=== PATIENT | male | born 1975 | race Caucasian/White ===

== ENCOUNTER 2016-09-06 23:07 | Emergency (ER) | payer OTHER ==
[2016-09-06] MEDS ORDERED: IPRATROPIUM/ALBUTEROL 3 ML NEB INH ONE (23:20)
[2016-09-06] MEDS ORDERED: IPRATROPIUM/ALBUTEROL 3 ML NEB INH STA (23:50)
--- NOTE | 2016-09-06 23:58 | ED Physician Documentation ---
PD HPI URI - Stated complaint Stated Complaint: COUGH,BLOOD ON PHLEGM - Chief complaint Chief Complaint: General - History obtained from History obtained from: Patient, Family - History of Present Illness Timing - onset: How many weeks ago (2) Timing details: Gradual onset, Still present Associated symptoms: Productive cough. No: Fever, Chills Worsened by: Activity Similar symptoms before: No diagnosis Recently seen: Not recently seen - Additional information Additional information: Patient is a 41 year old male with no significant past medical history who is presenting to the emergency department for cough. According to patient and family for over the last week patient has had a persist productive cough. patient has tried multiple medications with little relief. Patient states that tonight he came in because there was some blood on his phlegm. Review of Systems Constitutional: denies: Fever, Chills Eyes: denies: Loss of vision, Decreased vision Ears: denies: Ear pain, Drainage/discharge Nose: reports: Congestion. denies: Rhinorrhea / runny nose, Epistaxis, Sinus pressure / pain Throat: denies: Dental pain / toothache, Oral lesions / sores, Sore throat Cardiac: denies: Chest pain / pressure, Palpitations, Calf pain Respiratory: reports: Cough. denies: Wheezing GI: denies: Abdominal Pain, Nausea, Vomiting : denies: Dysuria, Frequency, Hesitancy Skin: denies: Rash, Lesions Musculoskeletal: denies: Neck pain, Back pain, Extremity pain, Extremity swelling Neurologic: denies: Generalized weakness, Focal weakness, Numbness Immunocompromised: denies: Immunocompromised PD PAST MEDICAL HISTORY - Past Medical History Past Medical History: Yes Cardiovascular: None Respiratory: Sleep apnea Neuro: None Endocrine/Autoimmune: None GI: None : None HEENT: None Psych: None Musculoskeletal: None Derm: None - Past Surgical History Past Surgical History: No - Present Medications Home Medications: Ambulatory Orders Medication Instructions Recorded Confirmed Benzonatate [Tessalon] 100 mg PO TID #15 capsule 09/07/16 Prednisone 40 mg PO DAILY 5 Days 09/07/16 guaiFENesin/CODEINE [Robitussin AC] 10 ml PO Q6H PRN #120 ml 09/07/16 - Allergies Allergies/Adverse Reactions: Allergies Allergy/AdvReac Type Severity Reaction Status Date / Time No Known Drug Allergies Allergy Verified 09/06/16 23:15 - Social History Does the pt smoke?: No Smoking Status: Never smoker Does the pt drink ETOH?: No Does the pt have substance abuse?: No - Immunizations Immunizations are current?: Yes - POLST Patient has POLST: No PD ED PE NORMAL - Vitals Vital signs reviewed: Yes - General General: Alert and oriented X 3, No acute distress, Well developed/nourished - HEENT HEENT: Atraumatic, PERRL, Pharynx benign - Neck Neck: Supple, no meningeal sign - Cardiac Cardiac: RRR, No murmur, No rub - Abdomen Abdomen: Soft - Derm Derm: Normal color, Warm and dry, No rash - Extremities Extremities: No deformity, No edema, No calf tenderness / cord - Neuro Neuro: Alert and oriented X 3, 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 No: Labored, Stridor Results - Vitals Vitals: Vital Signs - 24 hr 09/06/16 09/06/16 09/07/16 23:14 23:54 00:33 Temperature 37.0 C Heart Rate 69 82 78 Respiratory 18 16 18 Rate Blood Pressure 146/90 H 145/95 H O2 Saturation 100 100 Oxygen O2 Source Room air PD MEDICAL DECISION MAKING - ED course Complexity details: reviewed old records, reviewed results, re-evaluated patient , considered differential, d/w patient, d/w family ED course: Patient was seen and examined at bedside. Patient was treated with a duoneb and stated that he felt better. patient was sent for imaging. when patient returned there was no acute disease process. Patient was treated with prednisone and an albuterol inhaler. Patient required no further work up at this time and was stable for discharge with outpatient follow up. Departure - Departure Disposition: 01 Home, Self Care Clinical Impression: Bronchitis Condition: Good Instructions: ED Bronchitis Asthmatic Follow-Up: primary,care provider [Other] - Within 1 week (follow up with your pmd if your symptoms persist) Prescriptions: Prednisone 40 mg PO DAILY 5 Days guaiFENesin/CODEINE [Robitussin AC] 10 ml PO Q6H PRN #120 ml PRN Reason: Cough Benzonatate [Tessalon] 100 mg PO TID #15 capsule Comments: Your symptoms are being caused by bronchitis. there was no sign of pneumonia on chest x-ray. The disease course is normally self limited, meaning it will get better on its own, but it can take a while to get better. You will be treated with steroids and cough medicine. If your symptoms persist for more than another week you should follow up with your pmd for further evaluation and care. You can return to the emergency department at any time for new, worsening or uncontrollable symptoms.
--- NOTE | 2016-09-07 00:21 | XRAY Preliminary Report ---
Exam: XR Chest 2 View PA/LAT IMPRESSION: 1. No acute abnormality seen in the chest. [facility] SITE ID: [id number]
[2016-09-07] MEDS ORDERED: predniSONE 20 MG TABLET PO STA (00:24)
[2016-09-07] MEDS ORDERED: ALBUTEROL 8 GM INHALER INH STA (00:24)
--- NOTE | 2016-09-07 00:24 | XRAY Report ---
EXAM: CHEST RADIOGRAPHY EXAM DATE: 09/06/2016 11:58 PM. CLINICAL HISTORY: Cough, productive. Hemoptysis. COMPARISON: None. TECHNIQUE: 2 views. FINDINGS: Lungs/Pleura: No alveolar consolidation or pleural effusion. No pneumothorax. Mediastinum: Heart and mediastinal contours are unremarkable. Other: None. IMPRESSION: 1. No acute abnormality seen in the chest. [facility] Referring Provider Line: [phone] SITE ID: [id number]
[2016-09-07] MEDS ORDERED: predniSONE 20 MG TABLET ONE (00:30)
[2016-09-07] MEDS ORDERED: ALBUTEROL 18 GM INHALER INH ONE ×2 (00:51→00:58)
[2016-09-07 01:07] VITALS: BP 138/93
== END 2016-09-07 01:11 | disposition home or self-care (01) ==
LOC: ED 23:07
DX: J40 Bronchitis, not specified as acute or chronic (principal)
CPT/HCPCS: 71020; 94640; 94664; 99283; 99284; J7512; J7620